=== PATIENT | female | born 1995 | race African-American/Black ===

== ENCOUNTER 2023-10-21 22:29 | Emergency (ER) | payer OTHER ==
[~2023-10-21] VITALS: Ht 180.3 cm; Wt 87.0 kg
[2023-10-21 22:34] VITALS: BP 137/84; RESP 16; TEMP 98.2; O2SAT 100
[2023-10-21 22:36] VITALS: PULSE 83
[2023-10-22] MEDS ORDERED: ACET325T52 MT (01:48)
== END 2023-10-22 02:32 | disposition home or self-care (01) ==
LOC: ER 22:29
DX: S92.502A Displaced unspecified fracture of left lesser toe(s), initial encounter for closed fracture (principal); X58.XXXA Exposure to other specified factors, initial encounter; Y93.89 Activity, other specified; Y92.89 Other specified places as the place of occurrence of the external cause; Y99.8 Other external cause status
CPT/HCPCS: 73630; 99283; Z7610 ×2

== ENCOUNTER 2025-01-02 23:18 | Emergency (ER) | payer OTHER ==
[~2025-01-02] VITALS: Ht 177.8 cm; Wt 89.0 kg
[~2025-01-02 23:18] MED LIST: ACET-3800 MT
[2025-01-02 23:40] VITALS: TEMP 36.9; O2SAT 100
[2025-01-03 02:05] VITALS: TEMP 98.4
[2025-01-03] MEDS: ACETAMINOPHEN 325MG TABLET PO ONE (02:05)
[2025-01-03] MEDS ORDERED: ACET-2708 MT (02:36)
[2025-01-03 02:42] VITALS: BP 130/52; PULSE 74; RESP 12; O2SAT 100
== END 2025-01-03 02:47 | disposition home or self-care (01) ==
LOC: ER 23:18
DX: M79.675 Pain in left toe(s) (principal); Z79.899 Other long term (current) drug therapy
CPT/HCPCS: 73660; 99283